=== PATIENT | female | born 1980 | race Caucasian/White ===

== ENCOUNTER 2018-07-28 23:41 | Emergency (ER) | payer BC ==
[2018-07-29] MEDS ORDERED: HYDROcodone/Acetaminophen 5/325 mg Tablet ONE (02:43)
--- NOTE | 2018-07-29 07:39 | RAD ---
LEFT WRIST 3 VIEWS: Date: 07/29/18 INDICATION: Fell from stool with left wrist injury. COMPARISON: None. FINDINGS: There is a vertically oriented, nondisplaced, interarticular fracture involving the lunate fossa of t he distal radius extending into the dorsal and radial aspect of the radial metaphysis. Fracture is es sentially nondisplaced. There is soft tissue swelling surrounding the wrist. No additional fracture i s evident. IMPRESSION: Nondisplaced interarticular distal radial fracture. POS: [facility]
== END 2018-07-29 03:30 | disposition home or self-care (01) ==
LOC: ERS 23:41
DX: S52.502A Unspecified fracture of the lower end of left radius, initial encounter for closed fracture (principal); W08.XXXA Fall from other furniture, initial encounter; I10 Essential (primary) hypertension
CPT/HCPCS: 29125